=== PATIENT | female | born 1950 | race Caucasian/White ===

== ENCOUNTER → 2017-02-28 | Outpatient (CLI) | payer OTHER | LOC: FIMAGING 12:40 | PROVIDERS: ATTEND Nurse Practitioner Adult Health | DX: R10.11 Right upper quadrant pain (principal) ==

== ENCOUNTER → 2017-07-02 | Outpatient (CLI) | payer OTHER | LOC: FIMAGING 09:55 | PROVIDERS: ATTEND Internal Medicine | DX: R22.1 Localized swelling, mass and lump, neck (principal); R68.84 Jaw pain ==

== ENCOUNTER → 2017-07-10 | Outpatient (CLI) | payer OTHER ==
[~2017-07-10] MED LIST: BUPIVACAINE 0.25% 30 ML SDV ONE; LIDOCAINE 1% 300 MG/30 ML SDV ONE
[2017-07-10 12:33] LABS: WBC, SYNOVIAL FLUID 66 /mm3 (0-150)
== END ==
LOC: FIMAGING 10:21
PROVIDERS: ATTEND Internal Medicine
PROC: 0H9EXZZ Drainage of Left Lower Arm Skin, External Approach (ICD-10-PCS; principal; 2017-07-10)
DX: M70.22 Olecranon bursitis, left elbow (principal); M79.89 Other specified soft tissue disorders

== ENCOUNTER → 2017-07-22 | Outpatient (CLI) | payer OTHER ==
[~2017-07-22] MED LIST changes: -BUPIVACAINE 0.25% 30 ML SDV ONE; +IOPAMIDOL (ISOVUE-300) 100 ML BTL ONE; -LIDOCAINE 1% 300 MG/30 ML SDV ONE
== END ==
LOC: CIMAGING 11:12
PROVIDERS: ATTEND Internal Medicine
DX: M79.9 Soft tissue disorder, unspecified (principal); R91.1 Solitary pulmonary nodule; R53.81 Other malaise; R63.4 Abnormal weight loss; Z85.3 Personal history of malignant neoplasm of breast; Z87.891 Personal history of nicotine dependence
CPT/HCPCS: 70491; 71260; Q9967

== ENCOUNTER → 2018-01-15 | Outpatient (CLI) | payer OTHER | LOC: BMCIMAGING 13:44 | PROVIDERS: ATTEND Internal Medicine Endocrinology, Diabetes & Metabolism | DX: Z13.820 Encounter for screening for osteoporosis (principal); Z85.3 Personal history of malignant neoplasm of breast; M81.0 Age-related osteoporosis without current pathological fracture ==

== ENCOUNTER → 2018-04-08 | Day surgery (SDC) | payer OTHER ==
[~2018-04-08] MED LIST changes: +BACITRACIN IRRIGATION/NS 50,000 UNITS/1,000 ML BTL IRR ONE; +DIAZEPAM 5 MG TAB PO ONE; -IOPAMIDOL (ISOVUE-300) 100 ML BTL ONE; +NS 1,000 ML IV ONE; +ceFAZolin 2 GM/DEXTROSE 100 ML IV ONE; +diphenhydrAMINE 25 MG CAP PO ONE
[2018-04-08 10:30] LABS: PLATELET COUNT 293 10^3/uL (150-400)
[2018-04-08 10:39] LABS: INR 1.01 (0.83-1.16); PROTIME(PATIENT) 13.5 SEC (12.0-15.0)
--- NOTE | 2018-04-08 12:01 | CPEKG ---
Test Reason : OPEN Blood Pressure : / mmHG Vent. Rate : 120 BPM Atrial Rate : 112 BPM P-R Int : 176 ms QRS Dur : 080 ms QT Int : 309 ms P-R-T Axes : -85 056 050 degrees QTc Int : 437 ms Sinus or ectopic atrial tachycardia 1st degree AV block Confirmed by Ruben Martin ([id number]) on 04/08/2018 12:01:28 PM Referred By: Confirmed By:Ruben Martin
== END | disposition home or self-care (01) ==
LOC: FCATH 09:56
PROVIDERS: ATTEND Internal Medicine Cardiovascular Disease
PROC: 4A02X4Z Measurement of Cardiac Electrical Activity, External Approach (ICD-10-PCS; principal; 2018-04-08)
DX: Z45.02 Encounter for adjustment and management of automatic implantable cardiac defibrillator (principal); Z53.29 Procedure and treatment not carried out because of patient's decision for other reasons
CPT/HCPCS: J0690

== ENCOUNTER 2018-05-12 10:43 | Day surgery (SDC) | payer OTHER ==
[2018-05-12] MEDS ORDERED: DIAZEPAM 5 MG TAB PO ONE (10:58)
[2018-05-12] MEDS ORDERED: diphenhydrAMINE 25 MG CAP PO ONE (10:58)
[2018-05-12] MEDS ORDERED: ceFAZolin 2 GM/DEXTROSE 100 ML IV ONE (10:58)
[2018-05-12] MEDS ORDERED: BACITRACIN IRRIGATION/NS 50,000 UNITS/1,000 ML BTL IRR ONE (10:58)
[2018-05-12] MEDS ORDERED: NS 1,000 ML IV ONE (10:58)
--- NOTE | 2018-05-12 11:18 | PDGENHP ---
History & Physical Chief Complaint: icd at [facility] Relevant Physical Exam: s1s2 rrr cta ao3 Cardiorespiratory Assessment: f/h of CMP and sudden . patient has icd that is at [facility]. Plan generator change, plastic surgery required due to breast implant
[2018-05-12 11:44] LABS: PLATELET COUNT 301 10^3/uL (150-400)
[2018-05-12 11:56] LABS: INR 0.97 (0.83-1.16); PROTIME(PATIENT) 13.1 SEC (12.0-15.0)
[2018-05-12] MEDS ORDERED: MIDAZOLAM 2 MG/2 ML VIAL IVP ONE (12:12)
--- NOTE | 2018-05-12 12:13 | PDANEPAE ---
ANE History of Present Illness h/o idiopathic VT with AICD for generator change (retromuscular) ANE Past Medical History - Cardiovascular History Hx Hypertension: No Hx Arrhythmias: Yes Hx Chest Pain: No Hx Coronary Artery / Peripheral Vascular Disease: No Hx CHF / Valvular Disease: No Hx Palpitations: No - Pulmonary History Hx COPD: No Hx Asthma/Reactive Airway Disease: No Hx Recent Upper Respiratory Infection: No Hx Oxygen in Use at Home: No Hx Sleep Apnea: No ANE Review of Systems Review of systems is: negative Review of Systems: - Exercise capacity Exercise capacity: >=4 METS ANE Patient History - Allergies Allergies/Adverse Reactions: sulfamethoxazole [From Bactrim] Allergy (Intermediate, Verified 09/28/11 16:27) Rash trimethoprim [From Bactrim] Allergy (Intermediate, Verified 09/28/11 16:27) Rash - Home Medications Home medications: home medication list seen and reviewed Home Medications: No Medications [NO HOME MEDICATIONS] 1 ea MISC 09/28/11 [Last Taken Unknown] - Anes Hx Anes Hx: no prior problems - Smoking Hx Smoking Status: Former smoker ANE Labs/Vital Signs - Labs Result Diagrams: 05/12/18 11:35 05/12/18 11:35 - Vital Signs Height: 172.72 cm Weight: 76.204 kg ANE Physical Exam - Airway Neck exam: FROM Mallampati Score: Class 2 Mouth exam: normal dental/mouth exam - Pulmonary Pulmonary: no respiratory distress - Cardiovascular Cardiovascular: regular rate and rhythym - ASA Status ASA Status: II ANE Anesthesia Plan Anesthesia Plan: GA w LMA
[2018-05-12] MEDS ORDERED: LIDOCAINE 1% 300 MG/30 ML SDV ONE (12:15)
[2018-05-12] MEDS ORDERED: BUPIVACAINE 0.75% 10 ML SDV ONE (12:15)
[2018-05-12] MEDS ORDERED: MIDAZOLAM 2 MG/2 ML VIAL ONE (12:16)
[2018-05-12] MEDS ORDERED: fentaNYL 100 MCG/2 ML INJ ONE (12:19)
[2018-05-12] MEDS ORDERED: PROPOFOL 200 MG/20 ML VIAL ONE (12:20)
[2018-05-12] MEDS ORDERED: ONDANSETRON 4 MG/2 ML VIAL ONE (12:22)
[2018-05-12] MEDS ORDERED: DEXAMETHASONE 4 MG/ML VIAL ONE (12:22)
[2018-05-12] MEDS ORDERED: LIDOCAINE 2% 2 ML INJ ONE (12:22)
[2018-05-12] MEDS ORDERED: LIDO/EPI 1% **for epidural** 30 ML SDV ONE (12:54)
--- NOTE | 2018-05-12 13:39 | POSTANESTH ---
Post Anesthetic Evaluation Cardiovascular Status: Normal, Stable Respiratory Status: Normal, Stable Level of Consciousness/Mental Status: Can Participate in Eval, Alert and Oriented Pain Control: Adequate, Prn Tx Ordered Nausea/Vomiting Control: Adequate, Prn Tx Ordered Complications Possibly Related to Anesthesia: None Noted
--- NOTE | 2018-05-12 14:08 | GOP ---
DATE OF OPERATION: 05/12/2018 SURGEON: Octavia Schroeder Jr., MD ANESTHESIA: The patient had general inhalational anesthetic. PREOPERATIVE DIAGNOSIS: 1. Need for left generator change for cardiac device. 2. 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 POSTOPERATIVE DIAGNOSIS: 1. Need for left generator change for cardiac device. 2. 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 PROCEDURE PERFORMED: 1. Exposure of left generator pocket for Interventional Cardiology. 2. Upper pole breast reconstruction with fat advancement. 3. 10 cm complex skin closure. FINDINGS: ESTIMATED BLOOD LOSS: Less than 5 cc. INDICATIONS: Hali is a 67-year-old white female with Brugada syndrome, who was scheduled to unde rgo a generator change by Dr. Tejas Womack. She had a history of left breast reconstruction with an im plant, and requested that I be present to expose the generator for the change to minimize risk to her reconstruction, and improve her superior pole depression and close her final incision. She was taken to the Electrophysiology Lab in conjunction with Dr. Womack for this procedure. DESCRIPTION OF PROCEDURE: After risks and benefits of the procedure were explained to the patient, a nd formal operative consent was obtained, she was taken to the operating room. After adequate inhala tional general anesthesia was achieved, her premarked left upper breast incision was injected with li docaine containing adrenaline. She was prepped and draped in a normal sterile fashion. Procedure began by making a 10 cm incision in the upper breast. Electrocautery was used to dissect d own to the pectoralis major muscle. The muscle fibers were divided and the capsule for the generator was exposed. Capsulotomy was performed and the generator was removed. The generator was switched o ut by Dr. Womack, and after sufficient testing the pocket was irrigated with triple antibiotic saline so lution. I closed the capsule using a running 3-0 Vicryl suture. I closed the muscle with a running 3-0 Vicryl suture. I then freed superior and inferior fat and fascia, and mobilized over the defect to smooth the upper pole of the breast. The skin was then closed in a complex fashion. Final complex closure length was 10 cm. She tolerated the procedure well without complication. She had Steri-Strips and a 4 x 4 yue lied. She was extubated in the operating room, taken to recovery room, awake and in a stable conditi on. COMPLICATIONS: None. /[id number]/MODL
--- NOTE | 2018-05-12 16:02 | EPPROC ---
Electrophysiology Procedure Note: PROCEDURE PERFORMED: 1. Explantation of an A-V Implantable Cardioverter Defibrillator 2. Implantation of an A-V Implantable Cardioverted Defibrillator 3. EP study induction of ventricular fibrillation and defibrillation testing INDICATION: ICD Generator at [facility] Cardiomyopathy PROCEDURE NOTE: Patient presented to the cardiac catheterization laboratory in a fasting, postabsorptive state. Dr. Paez administered LMA. The L infraclavicular area was prepped and draped in the usual sterile fashion. Lidocaine plus bupivacaine was used for local anesthesia. Per patient request, Dr. Quincy Schroeder opened and closed the incision and ICD pocket. The ICD generator was disconnected from the leads and the lead thresholds and impedance were checked. The ICD pocket was copiously irrigated with antibiotic solution. The pocket was again inspected for any bleeding. The leads were attached to the ICD securely. The ICD was inserted into the pocket and secured in place with a nonabsorbable suture. Defibrillation testing was not performed. The patient left the cardiac catheterization laboratory in stable condition. Serial Numbers: 1. Implanted Device: Biotronik Ilivia 7 VRT DF (SYSTEM NOT MRI COMPLIANT DUE TO ABANDONED LEAD) 2. Ventricular Lead: Biotronik Linox S65 [id number] Stimulation Thresholds & Impedance Measurements: 1. Ventricular Lead R 15.1 0.9 V 0.4 ms 421 ohm shock impedance 89 ohm charge time 9.3 s Defibrillation testing: Not performd Pacing Parameters: 1. Pacing mode: VVI 40 ppm Tachycardia therapy parameters: VF zone : Detection 207 bpm First therapy 40 Joule Subsequent therapies 40 Joule VT zone : Detection 176 bpm First therapy ATP Second therapy 30 Joule Subsequent therapies 40 Joule Patient Problems: Problems Problem Status Onset Cardiac defibrillator in situ Acute
--- NOTE | 2018-05-12 16:42 | CPEKG ---
Test Reason : OPEN Blood Pressure : / mmHG Vent. Rate : 133 BPM Atrial Rate : 139 BPM P-R Int : 176 ms QRS Dur : 074 ms QT Int : 358 ms P-R-T Axes : 250 056 057 degrees QTc Int : 533 ms Ectopic atrial tachycardia, unifocal Minimal ST depression, anterolateral leads Prolonged QT interval QT prolongation is new in comparison to prior Confirmed by Donny Patino ([id number]) on 05/12/2018 4:42:03 PM Referred By: Confirmed By:Donny Patino
== END 2018-05-12 15:15 | disposition home or self-care (01) ==
LOC: FCATH 10:43
PROVIDERS: ATTEND Internal Medicine Cardiovascular Disease
PROC: 0JH608Z Insertion of Defibrillator Generator into Chest Subcutaneous Tissue and Fascia, Open Approach (ICD-10-PCS; principal; 2018-05-12)
DX: Z45.010 Encounter for checking and testing of cardiac pacemaker pulse generator [battery] (principal)
CPT/HCPCS: C1722; J0690; J1100; J2250; J2405; J2704; J3010

== ENCOUNTER 2018-05-14 10:54 | Emergency (ER) | payer OTHER ==
[2018-05-14 11:00] VITALS: BP 154/101
--- NOTE | 2018-05-14 11:27 | EDPHY ---
General Time Seen by Provider: 05/14/18 11:15 Narrative: CHIEF COMPLAINT: Face infection HISTORY OF PRESENT ILLNESS: Patient presents with spouse with complaints of possible face infection. She reports some discomfort in both cheek that started yesterday. She is concerned because she had her pacemaker replaced 2 days ago. This was uncomplicated she has no complaints regarding this. She noted some discomfort in her left cheek yesterday which is spread to the right she. She describes as swollen and warm. She has no headache. No fever. No visual disturbance. No lesions noted. No neck pain or stiffness. No chest pain, shortness of breath, cough. She has no other associated complaints with this. She contacted Dr. Womack and he recommended she present to the emergency department. REVIEW OF SYSTEMS: 10 systems were reviewed and negative with the exception of the elements mentioned in the history of present illness. PCP: None. Her current physician is retired SPECIALISTS: Dr. Womack PAST MEDICAL HISTORY: Cardiac conduction delay PAST SURGICAL HISTORY: Pacemaker x3 SOCIAL HISTORY: Never smoker. Lives independently with her spouse FAMILY HISTORY: Noncontributory EXAMINATION: General Appearance: Alert, no distress. Well-appearing nontoxic Head: normocephalic, atraumatic. No facial cellulitis. No periorbital cellulitis. Eyes: Pupils equal and round, no conjunctival pallor or injection. EOM symmetric. ENT, Mouth: Mucous membranes moist. Airway patent Neck: Normal inspection, supple, non-tender. Left supraclavicular edema that is baseline per patient Neurological: A&O, nonfocal, normal gait Skin: Warm and dry. No facial cellulitis. No periorbital cellulitis. Left upper chest incision overlying her ICD is clean, dry and intact with clean dressing per Extremities: Nontender, no pedal edema Psychiatric: Mood and affect normal DIFFERENTIAL DIAGNOSES: Including but not limited to cellulitis, abscess, dermatitis, zoster MDM: 11:15 a.m. Discomfort in bilateral maxillary skin with no obvious signs of cellulitis, abscess or erysipelas. No vesicular lesions. No evidence of zoster, and complaint is symmetric on the face. Suspect that this may be localized irritation discomfort, but there may be an early cellulitic component. The patient is more comfortable if we treat this empirically with antibiotics as she recently had a pacemaker replaced. I also feel she should take over-the- counter antihistamines as discussed. We discussed strict ED precautions for any worsening symptoms, true redness, warmth to the face, headache or fever. I have provided a referral to primary care physician as her physician is retiring. She is comfortable this plan. She is discharged home stable condition. During the patient's workup they do have vital signs that reveal incidental mild elevation of the blood pressure. We discussed that this is not necessarily accurate in diagnosing hypertension. I did recommend to the patient that it is important that discussed this with their primary care physician for ongoing re-evaluation management as needed. Patient is asymptomatic from this blood pressure and I do not feel they warrant further workup at this time for this. SUPERVISION: This patient was independently evaluated without direct involvement of or examination by the attending physician. CONSULTATION: None - History Smoking Status: Former smoker - Objective Vital Signs: Initial Vital Signs Temperature (C) 97.7 F 05/14/18 10:57 Heart Rate 76 05/14/18 10:57 Respiratory Rate 18 05/14/18 10:57 Blood Pressure 154/101 H 05/14/18 10:57 O2 Sat (%) 95 05/14/18 10:57 O2 Delivery Mode Room Air Allergies/Adverse Reactions: sulfamethoxazole [From Bactrim] Allergy (Intermediate, Verified 09/28/11 16:27) Rash trimethoprim [From Bactrim] Allergy (Intermediate, Verified 09/28/11 16:27) Rash Home Medications: Medication Instructions Recorded No Medications [NO HOME 1 ea [facility] [place] MEDICATIONS] Cephalexin [Keflex (*)] 500 mg PO QID #40 cap 05/14/18 IMITREX 05/14/18 Metoprolol Tartrate 05/14/18 Departure - Departure Disposition: Home, Routine, Self-Care Clinical Impression: Facial discomfort, Skin irritation Condition: Good Instructions: Cellulitis (ED) Additional Instructions: 1. Keflex 4 times daily as prescribed for 10 days 2. Return to emergency depart for any worsening of symptoms, redness of the face , warmth, headache or persistent fever 3. Contact the provided primary care physician to establish care with them Referrals: Tejas Womack MD [Primary Care Provider] - As per Instructions Aruna Adame MD [place] [place] - As per Instructions Prescriptions: Cephalexin [Keflex (*)] 500 mg PO QID #40 cap
== END 2018-05-14 11:36 | disposition home or self-care (01) ==
DX: G50.1 Atypical facial pain (principal); Z95.0 Presence of cardiac pacemaker

== ENCOUNTER → 2018-11-19 | Outpatient (CLI) | payer OTHER | LOC: BMCIMAGING 16:36 | PROVIDERS: ATTEND Internal Medicine | DX: M71.22 Synovial cyst of popliteal space [Baker], left knee (principal) | CPT/HCPCS: 86812-90 ==

== ENCOUNTER → 2018-11-26 | Outpatient (CLI) | payer OTHER | LOC: BMCIMAGING 16:09 | PROVIDERS: ATTEND Internal Medicine Rheumatology | DX: M79.642 Pain in left hand (principal); M79.641 Pain in right hand; M19.141 Post-traumatic osteoarthritis, right hand; M18.12 Unilateral primary osteoarthritis of first carpometacarpal joint, left hand; M15.4 Erosive (osteo)arthritis ==

== ENCOUNTER → 2018-12-21 | Outpatient (CLI) | payer OTHER | LOC: BMCIMAGING 16:50 | PROVIDERS: ATTEND Internal Medicine | DX: E83.52 Hypercalcemia (principal); Z87.891 Personal history of nicotine dependence ==